=== PATIENT | male | born 1960 ===

== ENCOUNTER → 2017-09-06 | Outpatient (CLI) | payer OTHER ==
[~2017-09-06] MED LIST: AZIT250 PO; CEPH500 PO; FLUT.05NI; FLUT220OIA INH; GUAPSEER PO; HYDCHL25 PO; HYDR1TAB94 PO; LISI20 PO; OMEP40CA12 PO; ONDA4ODT MM; OXYACE5T PO; PENVK500; PROCODE120 PO; PSEU120ER; Percocet 5-3251 EACH PO; SULTRIDS PO; UNKNOWN BP MED; UNKOWN B/P MED
== END ==
LOC: LAB 18:15
DX: J02.9 Acute pharyngitis, unspecified (principal)
CPT/HCPCS: 87070; 87205

== ENCOUNTER 2019-05-03 06:20 | Emergency (ER) | payer OTHER ==
[~2019-05-03] VITALS: Ht 170.2 cm; Wt 133.8 kg
[2019-05-03 07:11] LABS: BASOPHILS ABSOLUTE AUTO 0.04 K/mm3 (0.00-0.23); BASOPHILS PERCENT AUTO 0 % (0-2); EOSINOPHILS ABSOLUTE AUTO 0.32 K/mm3 (0.00-0.68); EOSINOPHILS PERCENT AUTO 3 % (0-6); Hematocrit 43.7 % (37.0-53.0); Hemoglobin 14.6 g/dL (13.5-17.5); IMMATURE GRAN ABSOLUTE AUTO 0.03 K/mm3 (0.00-0.10); IMMATURE GRAN PERCENT AUTO 0 % (0-1); LYMPHOCYTES ABSOLUTE AUTO 1.69 K/mm3 (0.84-5.20); LYMPHOCYTES PERCENT AUTO 18 % (21-46); MONOCYTES ABSOLUTE AUTO 0.79 K/mm3 (0.16-1.47); MONOCYTES PERCENT AUTO 8 % (4-13); Mean Corpuscular HGB 29.6 pg (26.0-34.0); Mean Corpuscular HGB Conc 33.4 g/dL (31.5-36.5); Mean Corpuscular Volume 89 fL (80-100); Mean Platelet Volume 9.1 fL (9.1-12.4); NEUTROPHILS ABSOLUTE AUTO 6.73 K/mm3 (1.96-9.15); NEUTROPHILS PERCENT AUTO 70 % (41-73); Platelet Count 304 K/mm3 (150-400); RDW Coefficient Variation 13.1 % (11.7-14.2); RDW Standard Deviation 42.5 fL (35.1-46.3); Red Blood Cell Count 4.93 M/mm3 (4.30-5.90)
[2019-05-03 07:25] LABS: Anion Gap 4 mmol/L (6-16); Blood Urea Nitrogen 13 mg/dL (8-24); Bun/Creatinine Ratio 16.1 (12.0-20.0); CO2, Blood 25 mmol/L (21-32); Calcium, Blood 9.3 mg/dL (8.5-10.1); Chloride, Blood 109 mmol/L (98-108); Creatinine, Blood 0.81 mg/dL (0.60-1.20); Glomerular Filtration Rate >60 (60-); Glucose, Blood 101 mg/dL (70-99); Potassium, Blood 4.3 mmol/L (3.5-5.5); Sodium, Blood 138 mmol/L (136-145)
[2019-05-03] MEDS ORDERED: Bactrim Ds Tab1 EACH PO (08:08)
[2019-05-03] MEDS ORDERED: CEPH500 PO (08:08)
== END 2019-05-03 08:17 | disposition home or self-care (01) ==
LOC: ER 06:20
PROVIDERS: Emergency Medicine
DX: L03.116 Cellulitis of left lower limb (principal); I10 Essential (primary) hypertension; Z79.899 Other long term (current) drug therapy
CPT/HCPCS: 36415; 76882; 80048; 85025; 99284-25

== ENCOUNTER 2021-06-12 05:59 | Inpatient (IN) | payer OTHER ==
[~2021-06-12] VITALS: Ht 170.2 cm; Wt 138.5 kg
[~2021-06-12 05:59] MED LIST changes: +Bactrim Ds Tab1 EACH PO; -LISI20 PO
[2021-06-12 07:15] LABS: BASOPHILS ABSOLUTE AUTO 0.01 K/mm3 (0.00-0.23); BASOPHILS PERCENT AUTO 0 % (0-2); EOSINOPHILS ABSOLUTE AUTO 0.01 K/mm3 (0.00-0.68); EOSINOPHILS PERCENT AUTO 0 % (0-6); Hemoglobin 14.1 g/dL (13.5-17.5); IMMATURE GRAN ABSOLUTE AUTO 0.02 K/mm3 (0.00-0.10); IMMATURE GRAN PERCENT AUTO 0 % (0-1); LYMPHOCYTES ABSOLUTE AUTO 1.26 K/mm3 (0.84-5.20); LYMPHOCYTES PERCENT AUTO 23 % (21-46); MONOCYTES ABSOLUTE AUTO 0.32 K/mm3 (0.16-1.47); MONOCYTES PERCENT AUTO 6 % (4-13); Mean Corpuscular HGB 28.7 pg (26.0-34.0); Mean Corpuscular HGB Conc 33.6 g/dL (31.5-36.5); Mean Corpuscular Volume 85 fL (80-100); Mean Platelet Volume 10.1 fL (9.1-12.4); NEUTROPHILS PERCENT AUTO 70 % (41-73); Platelet Count 195 K/mm3 (150-400); RDW Coefficient Variation 13.6 % (11.7-14.2); RDW Standard Deviation 42.8 fL (35.1-46.3); Red Blood Cell Count 4.92 M/mm3 (4.30-5.90); White Blood Cell Count 5.42 K/mm3 (4.00-11.30)
[2021-06-12 07:39] LABS: Alanine Aminotransfer (ALT/SGP 52 U/L (12-78); Albumin, Blood 3.1 g/dL (3.4-5.0); Albumin/Globulin Ratio 0.7 (0.8-1.8); Alk Phos 60 U/L (50-136); Anion Gap 7 mmol/L (6-16); Aspartate Aminotrans (AST/SGOT 40 U/L (12-37); Bilirubin, Total 0.6 mg/dL (0.1-1.0); Blood Urea Nitrogen 15 mg/dL (8-24); Bun/Creatinine Ratio 18.2 (12.0-20.0); CO2, Blood 26 mmol/L (21-32); Calcium, Blood 8.2 mg/dL (8.5-10.1); Chloride, Blood 104 mmol/L (98-108); Creatinine, Blood 0.82 mg/dL (0.60-1.20); Ferritin, Serum 360 ng/mL (26-388); Globulin, Blood 4.7 g/dL (2.2-4.0); Glomerular Filtration Rate >60 (60-); Glucose, Blood 126 mg/dL (70-99); Lactate Dehydrogenase (Ld),Bld 356 U/L (100-240); Potassium, Blood 3.5 mmol/L (3.5-5.5); Sodium, Blood 137 mmol/L (136-145); Total Protein, Blood 7.8 g/dL (6.4-8.2)
[2021-06-12] MEDS ORDERED: FUROSEMIDE40 MG PO (14:11)
[2021-06-12] MEDS ORDERED: ZESTRIL40 M1 PO (14:11)
--- NOTE | 2021-06-12 17:08 | NUR ---
SHIFT SUMMARY PT IS ISTTING UP IN BED ON 2L OF 02 NC SATS 93%. DENIES PAIN, SOME SOB WITH WALKING TO BATHROOM. AXO X4 CALLS APPROPRIATELY. PLEASANT AND COOPERATIVE. WILL CONTINUE TO MONITOR.
--- NOTE | 2021-06-13 03:47 | NUR ---
CUSTODIAL MANAGER SUMMARY PATIENT HAD A CALM SHIFT. HE WAS NOT IN ANY FORM OF DISTRESS OVERNIGHT. HE LODGED NIL COMPLAINT. VITALS ARE STSBLE. I WILL CONTINUE TO MONITOR HIM.
--- NOTE | 2021-06-13 05:16 | NUR ---
PATIENT STATED THAT FOR THE PAST 4 DAYS SINCE HE TESTED +VE FOR COVID HE HAS BEEN HAVING DARK TARRY STOOL. NO DIARRHEA, BUT FORMED. WILL CONTINUE TO MONITOR.
[2021-06-13 05:34] LABS: Hematocrit 43.1 % (37.0-53.0); Hemoglobin 14.6 g/dL (13.5-17.5); Mean Corpuscular HGB 28.9 pg (26.0-34.0); Mean Corpuscular HGB Conc 33.9 g/dL (31.5-36.5); Mean Corpuscular Volume 85 fL (80-100); Mean Platelet Volume 9.9 fL (9.1-12.4); Platelet Count 244 K/mm3 (150-400); RDW Coefficient Variation 13.7 % (11.7-14.2); RDW Standard Deviation 42.6 fL (35.1-46.3); Red Blood Cell Count 5.05 M/mm3 (4.30-5.90); White Blood Cell Count 11.18 K/mm3 (4.00-11.30)
[2021-06-13 05:58] LABS: Anion Gap 6 mmol/L (6-16); Blood Urea Nitrogen 19 mg/dL (8-24); Bun/Creatinine Ratio 26.2 (12.0-20.0); CO2, Blood 27 mmol/L (21-32); Calcium, Blood 8.6 mg/dL (8.5-10.1); Chloride, Blood 106 mmol/L (98-108); Creatinine, Blood 0.73 mg/dL (0.60-1.20); Glomerular Filtration Rate >60 (60-); Glucose, Blood 111 mg/dL (70-99); Magnesium, Blood 2.2 mg/dL (1.6-2.4); Potassium, Blood 4.1 mmol/L (3.5-5.5); Sodium, Blood 139 mmol/L (136-145)
--- NOTE | 2021-06-13 18:34 | NUR ---
SHIFT SUMMARY: PT A/O X 4 IND IN ROOM. PLEASANT AND COOPERATIVE. PT HAS BEEN ON RA THROUGHOUT THE DAY EXCEPT WHEN HE IS UP IN ROOM HE WEARS 2 LPM VIA NC. CONTINUES TO HAVE COUGH, GETS SOB WITH EXERTION. NO ACUTE CHANGES THIS SHIFT.
--- NOTE | 2021-06-14 04:03 | NUR ---
RECYCLABLE MATERIALS DISTRIBUTOR SUMMARY PATIENT HAD A FAIR SHIFT, WITH STABLE VITALS. HE WAS PLACED ON CPAP OVER THE NIGHT WITH CONTINOUS PULSE OXIMETER. HE WAS DESATURATING IN THE 85-84. OXYGEN WAS INCREASED BY THE RESPIRATORY THERAPIST TO 6L. THAT INCRESED SATURATION 90-91%. NO OTHER COMPLAINT LODGED.
[2021-06-14 05:17] LABS: BASOPHILS ABSOLUTE AUTO 0.01 K/mm3 (0.00-0.23); BASOPHILS PERCENT AUTO 0 % (0-2); EOSINOPHILS PERCENT AUTO 0 % (0-6); Hematocrit 40.7 % (37.0-53.0); Hemoglobin 13.5 g/dL (13.5-17.5); IMMATURE GRAN ABSOLUTE AUTO 0.03 K/mm3 (0.00-0.10); IMMATURE GRAN PERCENT AUTO 0 % (0-1); LYMPHOCYTES ABSOLUTE AUTO 1.45 K/mm3 (0.84-5.20); LYMPHOCYTES PERCENT AUTO 18 % (21-46); MONOCYTES ABSOLUTE AUTO 0.47 K/mm3 (0.16-1.47); MONOCYTES PERCENT AUTO 6 % (4-13); Mean Corpuscular HGB 28.5 pg (26.0-34.0); Mean Corpuscular HGB Conc 33.2 g/dL (31.5-36.5); Mean Corpuscular Volume 86 fL (80-100); NEUTROPHILS ABSOLUTE AUTO 6.15 K/mm3 (1.96-9.15); NEUTROPHILS PERCENT AUTO 76 % (41-73); Platelet Count 242 K/mm3 (150-400); RDW Coefficient Variation 13.7 % (11.7-14.2); RDW Standard Deviation 43.1 fL (35.1-46.3); Red Blood Cell Count 4.73 M/mm3 (4.30-5.90); White Blood Cell Count 8.11 K/mm3 (4.00-11.30)
[2021-06-14 06:04] LABS: Anion Gap 6 mmol/L (6-16); Blood Urea Nitrogen 22 mg/dL (8-24); Bun/Creatinine Ratio 31.6 (12.0-20.0); CO2, Blood 25 mmol/L (21-32); Calcium, Blood 8.7 mg/dL (8.5-10.1); Chloride, Blood 109 mmol/L (98-108); Glomerular Filtration Rate >60 (60-); Glucose, Blood 119 mg/dL (70-99); Potassium, Blood 4.5 mmol/L (3.5-5.5); Sodium, Blood 140 mmol/L (136-145)
--- NOTE | 2021-06-14 06:26 | NUR ---
PATIENT'S OXYGEN LEVEL KEEPS DROPING TO 83% EVEN [id number] OF OXYGEN. THE RT INFORMED, WHILE THE CARDIAC CATH TECH SWITCHED HIM TO NON REBREATHER MASK AND HE IS SATURATING AT 97%. HIS HR WAS ALSO LOW @42-44 HIS BP WAS CHECKED AND DOCUMENTED DR. ADEN INFORMED, NO ORDERS RECEIVED AT THIS TIME. WILL CONTINUE TO MONITOR HIM.
--- NOTE | 2021-06-14 09:48 | NUR ---
TALKED TO DR. WISEMAN ABOUT V.S. HOLD LISINOPRIL. TO CHECK CHART
--- NOTE | 2021-06-14 11:07 | NUR ---
PER PATIENT OK TO DISCUSS CONDITION WITH SON, GODFREY. SON UPDATED
--- NOTE | 2021-06-14 12:01 | NUR ---
NOTIFIED SECURITY THAT PATIENT IS PARKED IN [facility] SINCE 06/12/21. [employer] 4 DOOR LIGHT [employer] COL[employer] LICENSE # [id number]. THEY ST THEY DO NOT TOW VEHICLES, POLICE WOULD IF THEY DO PARKING LOT SEARCH AND POLICE WOULD NOTIFY THEM FIRST BEFORE [place]. THEY HAVE NOT BEEN NOTIFIED OF ANY VEHICLES BEING TOWED.WILL LET PATIENT KNOW.
[2021-06-14 12:07] LABS: PCO2 Arterial 37.5 mmHg (35-45); pH Blood Arterial 7.44 (7.35-7.45)
--- NOTE | 2021-06-14 14:46 | NUR ---
PATIENT CALLED SISTER, DANUTA [phone], ABOUT BRINGING IN CPAP MACHINE. ADVISED TO PUT IN A BAG W/PATIENT NAME ON IT AND BRING TO [facility].
--- NOTE | 2021-06-14 16:23 | NUR ---
ALERT. ORIENTED. SISTER BROUGHT IN HIS NASAL CPAP MASK AND MACHINE. SATS MOSTLY LOW 90'S BUT DO DROP TO 88-89 WHICH STATES HE IS "OK WITH THAT." PATIENT ON PHONE MOST OF DAY. REVIEWED WHY HE CAN NOT HAVE MONOCLONAL ANTIBODIES. ADVISED WE DO NOT USE IVERMECTIN HERE. PATIENT HAD BLANKET ON FLOOR AND WAS TRYING TO DO PARTIAL SITUPS. ADVISED SHOULD BE TAKING IT EASY AT THIS TIME. IV SALINE LOCKED. HEART RATE HAS BEEN 40-50'S. WCTM
--- NOTE | 2021-06-15 04:43 | NUR ---
SOLAR PANEL TECHNICIAN SUMMARY PATIENT HAD A FAIR SHIFT. WAS ON HIS CPAP ALL NIGHT AND HIS SATURATION LEVEL WAS FLUCTUATING FROM 83-94. NO OTHER POUND
[2021-06-15 05:00] LABS: BASOPHILS ABSOLUTE AUTO 0.01 K/mm3 (0.00-0.23); BASOPHILS PERCENT AUTO 0 % (0-2); EOSINOPHILS PERCENT AUTO 0 % (0-6); Hematocrit 41.3 % (37.0-53.0); Hemoglobin 13.5 g/dL (13.5-17.5); IMMATURE GRAN ABSOLUTE AUTO 0.08 K/mm3 (0.00-0.10); IMMATURE GRAN PERCENT AUTO 1 % (0-1); LYMPHOCYTES ABSOLUTE AUTO 1.59 K/mm3 (0.84-5.20); LYMPHOCYTES PERCENT AUTO 18 % (21-46); MONOCYTES ABSOLUTE AUTO 0.59 K/mm3 (0.16-1.47); MONOCYTES PERCENT AUTO 7 % (4-13); Mean Corpuscular HGB 28.4 pg (26.0-34.0); Mean Corpuscular HGB Conc 32.7 g/dL (31.5-36.5); Mean Corpuscular Volume 87 fL (80-100); Mean Platelet Volume 9.8 fL (9.1-12.4); NEUTROPHILS ABSOLUTE AUTO 6.79 K/mm3 (1.96-9.15); NEUTROPHILS PERCENT AUTO 75 % (41-73); Platelet Count 297 K/mm3 (150-400); RDW Coefficient Variation 13.8 % (11.7-14.2); RDW Standard Deviation 44.3 fL (35.1-46.3); Red Blood Cell Count 4.75 M/mm3 (4.30-5.90); White Blood Cell Count 9.06 K/mm3 (4.00-11.30)
[2021-06-15 05:41] LABS: Anion Gap 6 mmol/L (6-16); Blood Urea Nitrogen 22 mg/dL (8-24); Bun/Creatinine Ratio 26.8 (12.0-20.0); CO2, Blood 25 mmol/L (21-32); Calcium, Blood 8.7 mg/dL (8.5-10.1); Chloride, Blood 109 mmol/L (98-108); Creatinine, Blood 0.82 mg/dL (0.60-1.20); Glomerular Filtration Rate >60 (60-); Glucose, Blood 127 mg/dL (70-99); Potassium, Blood 4.3 mmol/L (3.5-5.5); Sodium, Blood 140 mmol/L (136-145)
--- NOTE | 2021-06-15 17:18 | NUR ---
PATIENT IS ALERT AND ORIENTED AND COOPERATIVE WITH CARE. CONTINUOUS PULSE OX IN PLACE. PATIENT IS ON 11L O2 VIA NC WITH AN O2 SATURATION OF 92% AND A HR OF 48 BPM. IS AWARE OF BRADYCARDIA. USES THE URINAL INDEPENDENTLY. NO NEW CONCERNS TODAY. WILL CONTINUE TO MONITOR
--- NOTE | 2021-06-16 03:55 | NUR ---
SHIFT SUMMARY ADMITTED FOR COVID+. FULL CODE. ON 11 LPM HI FLOW O2. HOME CPAP @ NIGHT. RUNS CINTHYA IN THE 40'S BPM. REMDESIVIR IS SCHEDULED. CONTINUOUS PULSE OX IS MONITORING. LASIX IS SCHEDULED. REGULAR DIET. INDEPENDENT. NO NEW CONCERNS THIS SHIFT
[2021-06-16 05:52] LABS: BASOPHILS ABSOLUTE AUTO 0.04 K/mm3 (0.00-0.23); BASOPHILS PERCENT AUTO 0 % (0-2); EOSINOPHILS ABSOLUTE AUTO 0.02 K/mm3 (0.00-0.68); EOSINOPHILS PERCENT AUTO 0 % (0-6); Hematocrit 41.7 % (37.0-53.0); Hemoglobin 13.8 g/dL (13.5-17.5); IMMATURE GRAN ABSOLUTE AUTO 0.26 K/mm3 (0.00-0.10); IMMATURE GRAN PERCENT AUTO 2 % (0-1); LYMPHOCYTES PERCENT AUTO 22 % (21-46); MONOCYTES ABSOLUTE AUTO 0.71 K/mm3 (0.16-1.47); MONOCYTES PERCENT AUTO 6 % (4-13); Mean Corpuscular HGB 28.6 pg (26.0-34.0); Mean Corpuscular HGB Conc 33.1 g/dL (31.5-36.5); Mean Corpuscular Volume 87 fL (80-100); Mean Platelet Volume 9.8 fL (9.1-12.4); NEUTROPHILS ABSOLUTE AUTO 7.73 K/mm3 (1.96-9.15); NEUTROPHILS PERCENT AUTO 69 % (41-73); NRBC ABSOLUTE 0.02 K/mm3 (0.00-0.02); NRBC Auto 0.2 /100 WBC (0.0-0.2); Platelet Count 333 K/mm3 (150-400); RDW Coefficient Variation 13.6 % (11.7-14.2); RDW Standard Deviation 43.3 fL (35.1-46.3); Red Blood Cell Count 4.82 M/mm3 (4.30-5.90); White Blood Cell Count 11.16 K/mm3 (4.00-11.30)
[2021-06-16 06:43] LABS: Anion Gap 5 mmol/L (6-16); Blood Urea Nitrogen 23 mg/dL (8-24); Bun/Creatinine Ratio 28.3 (12.0-20.0); CO2, Blood 28 mmol/L (21-32); Calcium, Blood 8.6 mg/dL (8.5-10.1); Chloride, Blood 107 mmol/L (98-108); Creatinine, Blood 0.81 mg/dL (0.60-1.20); Glomerular Filtration Rate >60 (60-); Glucose, Blood 103 mg/dL (70-99); Potassium, Blood 4.2 mmol/L (3.5-5.5); Sodium, Blood 140 mmol/L (136-145)
--- NOTE | 2021-06-16 16:34 | NUR ---
SHIFT SUMMARY PATIENT DENIES PAIN, NAUSEA, AND SHORTNESS OF BREATH AT REST. PATIENT REPORTS SOB WITH ACTIVITY. PATIENT TITRATED THROUGHOUT THE SHIFT. PATIENT CURRENTLY ON 6L, HIGH FLOW. PATIENT MAINTAINING SATS ABOVE 93%. PATIENT IS INDEPENDENT IN THE ROOM. PATIENT STATED HE IS MOTIVATED TO GO HOME. RT DID A HOME O2 EVAL. PATIENT IS EATING AND DRINKING WELL. LAST DOSE OF REMDESIVIR GIVEN THIS SHIFT. PATIENT IS PLEASANT AND COOPERATIVE WITH CARE.
--- NOTE | 2021-06-17 04:50 | NUR ---
BRIDGE REPAIR CREW PERSON SUMMARY PATIENT HAD A FAIR SHIFT, VITALS STABLE NO COMPLAINT OVER NIGHT. OXYGEN LEVEL REDUCED TO 5L ON HIGH FLOW. SATURATION LEVEL AT 90-93. GOT HIS COUGH MED NEEDED. WILL CONTINUE TO MONITOR HIM.
[2021-06-17 05:16] LABS: BASOPHILS ABSOLUTE AUTO 0.09 K/mm3 (0.00-0.23); BASOPHILS PERCENT AUTO 1 % (0-2); EOSINOPHILS ABSOLUTE AUTO 0.07 K/mm3 (0.00-0.68); EOSINOPHILS PERCENT AUTO 1 % (0-6); Hematocrit 42.4 % (37.0-53.0); Hemoglobin 14.2 g/dL (13.5-17.5); IMMATURE GRAN ABSOLUTE AUTO 0.53 K/mm3 (0.00-0.10); IMMATURE GRAN PERCENT AUTO 4 % (0-1); LYMPHOCYTES ABSOLUTE AUTO 2.54 K/mm3 (0.84-5.20); LYMPHOCYTES PERCENT AUTO 21 % (21-46); MONOCYTES ABSOLUTE AUTO 0.99 K/mm3 (0.16-1.47); MONOCYTES PERCENT AUTO 8 % (4-13); Mean Corpuscular HGB 28.7 pg (26.0-34.0); Mean Corpuscular HGB Conc 33.5 g/dL (31.5-36.5); Mean Corpuscular Volume 86 fL (80-100); Mean Platelet Volume 9.8 fL (9.1-12.4); NEUTROPHILS ABSOLUTE AUTO 8.05 K/mm3 (1.96-9.15); NEUTROPHILS PERCENT AUTO 66 % (41-73); Platelet Count 348 K/mm3 (150-400); RDW Coefficient Variation 13.6 % (11.7-14.2); RDW Standard Deviation 42.4 fL (35.1-46.3); Red Blood Cell Count 4.95 M/mm3 (4.30-5.90); White Blood Cell Count 12.27 K/mm3 (4.00-11.30)
[2021-06-17 05:57] LABS: Albumin, Blood 2.8 g/dL (3.4-5.0); Anion Gap 5 mmol/L (6-16); Blood Urea Nitrogen 20 mg/dL (8-24); Bun/Creatinine Ratio 23.2 (12.0-20.0); CO2, Blood 28 mmol/L (21-32); Calcium, Blood 8.9 mg/dL (8.5-10.1); Chloride, Blood 105 mmol/L (98-108); Creatinine, Blood 0.86 mg/dL (0.60-1.20); Glomerular Filtration Rate >60 (60-); Glucose, Blood 98 mg/dL (70-99); Potassium, Blood 4.6 mmol/L (3.5-5.5); Sodium, Blood 138 mmol/L (136-145)
--- NOTE | 2021-06-17 17:52 | NUR ---
SHIFT SUMMARY PATIENT ALERT AND ORIENTED THIS SHIFT. PATIENT INDEPENDENT IN THE ROOM. NO ACUTE CHANGES THIS SHIFT. PATIENT ON 4L O2 MAINTAINING SAT OF 94. PATIENT ALTERNATES SITTING UP IN BED AND SITTING IN CHAIR THROUGHOUT THIS SHIFT. PATIENT CURRENTLY SITTING UP IN CHAIR EATING DINNER.
--- NOTE | 2021-06-18 03:56 | NUR ---
CONTINUOUS IMPROVEMENT DIRECTOR SUMMARY PATIENT HAD A FAIR SHIFT. HIS VITALS WERE STABLE. HE IS USING THE INCENTIVE SPIROMETRY DIRECTED. HIS OXYGEN LEVEL WAS REDUCED TO 2L HIGH FLOW AND SATURATED WELL WITHIN 90-94% WILL CONTINUE TO MONITOR HIM.
[2021-06-18 05:35] LABS: Hematocrit 42.5 % (37.0-53.0); Hemoglobin 14.2 g/dL (13.5-17.5); Mean Corpuscular HGB 28.3 pg (26.0-34.0); Mean Corpuscular HGB Conc 33.4 g/dL (31.5-36.5); Mean Corpuscular Volume 85 fL (80-100); Mean Platelet Volume 9.9 fL (9.1-12.4); Platelet Count 435 K/mm3 (150-400); RDW Coefficient Variation 13.7 % (11.7-14.2); RDW Standard Deviation 42.6 fL (35.1-46.3); Red Blood Cell Count 5.02 M/mm3 (4.30-5.90); White Blood Cell Count 10.89 K/mm3 (4.00-11.30)
[2021-06-18 06:09] LABS: Anion Gap 6 mmol/L (6-16); Blood Urea Nitrogen 17 mg/dL (8-24); Bun/Creatinine Ratio 24.9 (12.0-20.0); CO2, Blood 25 mmol/L (21-32); Chloride, Blood 105 mmol/L (98-108); Creatinine, Blood 0.68 mg/dL (0.60-1.20); Glomerular Filtration Rate >60 (60-); Glucose, Blood 110 mg/dL (70-99); Potassium, Blood 5.5 mmol/L (3.5-5.5); Sodium, Blood 136 mmol/L (136-145)
[2021-06-18 06:43] LABS: BAND PERCENT MAN 1 % (0-8); BASOPHILS PERCENT MAN 0 % (0-2); EOSINOPHILS ABSOLUTE MAN 0.21 K/mm3 (0.00-0.68); EOSINOPHILS PERCENT MAN 2 % (0-6); LYMPHOCYTES ABSOLUTE MAN 1.63 K/mm3 (0.84-5.20); LYMPHOCYTES PERCENT MAN 15 % (21-46); METAMYELOCYTE ABSOLUTE MAN 0.32 K/mm3 (0.00-0.00); METAMYELOCYTE PERCENT MAN 3 % (0-0); MONOCYTES ABSOLUTE MAN 0.76 K/mm3 (0.16-1.47); MONOCYTES PERCENT MAN 7 % (4-13); MYELOCYTE ABSOLUTE MAN 0.21 K/mm3 (0.00-0.00); MYELOCYTE PERCENT MAN 2 % (0-0); NEUTROPHILS ABSOLUTE MAN 7.73 K/mm3 (1.96-9.15); SEG NEUTROPHILS PERCENT MAN 70 % (41-73); TOTAL CELLS COUNTED 100
[2021-06-18] MEDS ORDERED: BENZ100A PO (11:43)
[2021-06-18] MEDS ORDERED: GUAI600T33 PO (11:43)
[2021-06-18] MEDS ORDERED: DEXA6 PO (11:43)
--- NOTE | 2021-06-18 13:26 | NUR ---
PATIENT DISCHARGED TO HOME. REFUSES WHEEL CHAIR WANTS TO WALK TO [facility]. THIS RN TRIES TO CONVINCE PATIENT TO ALLOW SOMEONE TO TAKE HIM OUT BUT PT REFUSES. PATIENT STOPS AT [facility]ATOR AN ASKS NURSE FOR A WHEEL CHAIR AND SOMEONE TO TAKE HIM TO HIS CAR. PATIENT EXPRESSES THAT HE FEELS EXTREMELY WINDED AND DIDN'T REALIZE THAT HE WOULD FEEL THIS BAD. [facility] RX'S WERE FAXED TO [facility] FOR PATIENT AND WORK NOTE IS PROVIDED TO HIM. PATIENT VERBALIZED DC INSTRUCTIONS AND ASKS QUESTIONS. PT STATES HE WILL BE GETTING HIS BOOSTER DOSE FOR COVID IMMUNIZATION "IN A FEW WEEKS" ANKITA MORENO RN CARE MANAGER.
== END 2021-06-18 13:19 | disposition home or self-care (01) | DRG 177 ==
LOC: ER 05:59 → ERHOLD 06:00 → ER 06:01 → ERHOLD 06:01 → MEDS 06:01 → ERHOLD 06:02 → ER 09:07 → ERHOLD 09:07 → MEDS 15:24 → ERHOLD 15:24 → MEDS 06-13 16:20 → ERHOLD 06-13 16:20 → MEDS 06-13 23:39
PROVIDERS: Emergency Medicine; Family Medicine; Nurse Practitioner Acute Care; ADMIT Internal Medicine
PROC: 8E0ZXY6 Isolation (ICD-10-PCS; principal; 2021-06-12)
PROC: XW033E5 Introduction of Remdesivir Anti-infective into Peripheral Vein, Percutaneous Approach, New Technology Group 5 (ICD-10-PCS; 2021-06-12)
PROC: 3E0333Z Introduction of Anti-inflammatory into Peripheral Vein, Percutaneous Approach (ICD-10-PCS; 2021-06-12)
DX: U07.1 COVID-19 (principal); J12.82 Pneumonia due to coronavirus disease 2019; J96.01 Acute respiratory failure with hypoxia; Z68.42 Body mass index [BMI] 45.0-49.9, adult; R65.10 Systemic inflammatory response syndrome (SIRS) of non-infectious origin without acute organ dysfunction; K21.9 Gastro-esophageal reflux disease without esophagitis; G47.33 Obstructive sleep apnea (adult) (pediatric); E66.01 Morbid (severe) obesity due to excess calories; I10 Essential (primary) hypertension; Z90.49 Acquired absence of other specified parts of digestive tract; Z79.899 Other long term (current) drug therapy
CPT/HCPCS: 36415; 36600; 71045; 80048; 80053; 80069; 82728; 82803; 83615; 83735; 83880; 84145; 85025; 85027; 85379; 93005; 93010; 93306; 94660; 94760; 94762; 96372; 96374; 96375; 99285-25; A9270; G0378; J1100; J1650; J1940; J7050

== ENCOUNTER → 2022-03-09 | Outpatient (CLI) | payer OTHER ==
[~2022-03-09] MED LIST changes: +BENZ100A PO; +DEXA6 PO; +FUROSEMIDE40 MG PO; +GUAI600T33 PO; +ZESTRIL40 M1 PO
[2022-03-11 05:08] LABS: HBSAG SCREEN Negative (Negative); HCV ANTIBODY 0.1 (0.0-0.9)
[2022-03-11 11:08] LABS: HIV AB/P24 AG SCREEN Non Reactive (Non Reactive)
== END | disposition home or self-care (01) ==
LOC: LAB SHORT 13:58 → LAB 13:58
PROVIDERS: Registered Nurse Community Health
DX: Z11.3 Encounter for screening for infections with a predominantly sexual mode of transmission (principal)
CPT/HCPCS: 36415; 86592; 86803; 87340; 87389

== ENCOUNTER 2023-07-22 13:28 | Emergency (ER) | payer OTHER ==
[~2023-07-22] VITALS: Ht 170.2 cm; Wt 140.6 kg
[2023-07-22 14:03] VITALS: BP 142/57
[2023-07-22] MEDS ORDERED: LOPE2C PO (15:40)
== END 2023-07-22 15:54 | disposition home or self-care (01) ==
LOC: ER 13:28
DX: R19.7 Diarrhea, unspecified (principal); R11.2 Nausea with vomiting, unspecified; I10 Essential (primary) hypertension; E66.01 Morbid (severe) obesity due to excess calories; Z68.42 Body mass index [BMI] 45.0-49.9, adult; K21.9 Gastro-esophageal reflux disease without esophagitis; G47.33 Obstructive sleep apnea (adult) (pediatric); Z79.899 Other long term (current) drug therapy
CPT/HCPCS: 99284; A9270; J7030

== ENCOUNTER 2023-08-01 16:18 | Emergency (ER) | payer OTHER ==
[~2023-08-01] VITALS: Ht 170.2 cm; Wt 140.6 kg
[~2023-08-01 16:18] MED LIST changes: +LOPE2C PO
[2023-08-01 16:32] VITALS: BP 142/70
[2023-08-01] MEDS ORDERED: CEPH500 PO (17:07)
== END 2023-08-01 17:16 | disposition home or self-care (01) ==
LOC: ER 16:18
DX: L03.317 Cellulitis of buttock (principal); E66.01 Morbid (severe) obesity due to excess calories; Z68.42 Body mass index [BMI] 45.0-49.9, adult; I10 Essential (primary) hypertension; K21.9 Gastro-esophageal reflux disease without esophagitis; G47.33 Obstructive sleep apnea (adult) (pediatric); Z79.899 Other long term (current) drug therapy
CPT/HCPCS: 99283; A9270

== ENCOUNTER 2023-08-13 07:52 | Emergency (ER) | payer OTHER ==
[~2023-08-13] VITALS: Ht 167.6 cm; Wt 127.0 kg
[2023-08-13 09:02] LABS: Influenza B, PCR NEGATIVE (NEGATIVE); Resp Syncytial Virus, PCR NEGATIVE (NEGATIVE); SARS-Cov-2 (COVID-19) PCR, MMC NEGATIVE (NEGATIVE)
[2023-08-13 09:17] VITALS: BP 128/64
[2023-08-13 09:31] LABS: Influenza A, PCR POSITIVE (NEGATIVE)
[2023-08-13] MEDS ORDERED: OSEL75CA PO (09:45)
== END 2023-08-13 09:57 | disposition home or self-care (01) ==
LOC: ER 07:52
PROVIDERS: Emergency Medicine
DX: J10.1 Influenza due to other identified influenza virus with other respiratory manifestations (principal); I10 Essential (primary) hypertension; J45.909 Unspecified asthma, uncomplicated; Z79.899 Other long term (current) drug therapy
CPT/HCPCS: 0241U; 71046; 99283-25

== ENCOUNTER → 2024-04-27 | Outpatient (CLI) | payer OTHER ==
[~2024-04-27] MED LIST changes: +OSEL75CA PO
[2024-04-27 11:37] LABS: Stool Occult Bld Immuno 1 Negative (NEGATIVE)
== END | disposition home or self-care (01) ==
LOC: LAB 09:51 → LAB SHORT 09:51
PROVIDERS: Nurse Practitioner Family
DX: Z12.11 Encounter for screening for malignant neoplasm of colon (principal); Z12.12 Encounter for screening for malignant neoplasm of rectum
CPT/HCPCS: G0328

== ENCOUNTER → 2024-05-04 | Outpatient (CLI) | payer OTHER | LOC: LAB 08:41 → LAB SHORT 08:41 | DX: T14.8XXA Other injury of unspecified body region, initial encounter (principal) | CPT/HCPCS: 87070; 87077; 87147; 87186; 87205 ==